=== PATIENT | male | born 1975 ===

== ENCOUNTER 2018-04-05 14:43 | Emergency (ER) | payer OTHER, SELFPAY ==
[2018-04-05 14:47] VITALS: BP 128/91; PULSE 64; RESP 15; TEMP 36.7; O2SAT 97; BMI 30.9
[2018-04-05] MEDS: TET,DIPH,PERTUSS(ACELL),VAC/PF 0.5 ML SYRINGE IM (15:05)
--- NOTE | 2018-04-05 15:41 | ED.WOUNDLAC ---
HPI - Wound/Laceration General Chief Complaint: Wound/Laceration Stated Complaint: CUT FINGER AT FINGER Time Seen by Provider: 04/05/18 15:41 Source: patient Mode of arrival: ambulatory Limitations: no limitations History of Present Illness HPI narrative: Patient states that 3 days ago he cut his finger in a door while at work. Patient states he wrapped the finger up and has kept antibiotic ointment on it since. However he realized he could not remember when his last tetanus shot was, and so has come to the emergency department for this. He denies any further complaints with the wound on his finger. Onset (ago): day(s) Location: other Extremity Location: Left: hand (Index finger) Place: work Patient tetanus UTD: No Context: accidental Associated symptoms: none Treatments prior to arrival: bandage Related Data Home Medications Medication Instructions Recorded Confirmed amlodipine 10 mg PO DAILY 04/05/18 04/05/18 lisinopril 20 mg PO DAILY 04/05/18 04/05/18 trazodone 200 mg PO DAILY 04/05/18 Allergies Allergy/AdvReac Type Severity Reaction Status Date / Time No Known Drug Allergies Allergy Verified 04/05/18 14:47 Review of Systems Review of Systems All systems reviewed & are unremarkable except as noted in HPI and below Constitutional Denies chills, Denies fever(s), Denies lethargy and Denies weakness Eyes Denies change in vision, Denies eye discharge, Denies irritation and Denies loss of vision ENT Ears, Nose, Mouth, and Throat: Denies change in voice, Denies neck pain and Denies sore throat Cardiovascular Denies chest pain, Denies irregular heart rhythm, Denies lightheadedness, Denies palpitations, Denies dyspnea, Denies dyspnea on exertion and Denies orthopnea Respiratory Denies cough, Denies dyspnea, Denies dyspnea on exertion and Denies wheezing Gastrointestinal Gastrointestinal: Denies abdominal pain, Denies change in bowel habits, Denies diarrhea, Denies nausea and Denies vomiting Genitourinary Denies hematuria, Denies flank pain, Denies urinary incontinence and Denies urinary urgency Musculoskeletal Denies neck pain Integumentary/Breasts Denies pruritus, Denies erythema, Denies rash and Denies wounds Neurologic Denies confusion, Denies loss of vision and Denies weakness Psychiatric Denies anxiety, Denies confusion, Denies depression, Denies homicidal ideation and Denies suicidal ideation Endocrine Denies palpitations Hematologic/Lymphatic Denies easy bruising Allergic/Immunologic Denies wheezing PFSH Social History Smoking Status: Never smoker Exam Initial Vital Signs Initial Vital Signs: Vital Signs Temperature 98.1 F 04/05/18 14:47 Pulse Rate 64 04/05/18 14:47 Respiratory Rate 15 04/05/18 14:47 Blood Pressure 128/91 H 04/05/18 14:47 Pulse Oximetry 97 04/05/18 14:47 Const General: cooperative and well developed Nutritional Appearance: well nourished Orientation: alert, awake, oriented x3 and not confused [facility] Head: normocephalic and atraumatic Nose: external nose normal and No nasal discharge Face and sinus: sinuses nontender, face symmetric, no sinus tenderness and No dry mucous membranes Mouth: oral mucosae normal and moist mucous membranes Teeth and gingiva: dentition normal Throat: tonsils normal and uvula midline Eyes General: appearance normal, both eyes and all related structures Eyelids: eyelids normal Conjunctivae: conjunctivae normal EOM: EOM intact bilaterally Neck Neck: normal visual inspection and full ROM Resp Effort & Inspection: normal respiratory effort Cardio Rate: regular rate Rhythm: regular rhythm Pulses: normal peripheral pulses Skin Other: Skin avulsion is noted, left index finger. Neuro General: alert, oriented x3, gait normal and no focal motor deficits Speech: speech normal Extrem Left upper extremity: full ROM and hand (Patient has a 5 mm skin avulsion on the palmar aspect of his left index finger, over the distal phalanx. No evidence of infection.) Details: neuromotor exam abnormal, neurosensory exam normal, tendon exam normal and normal ROM of fingers; no edema and joint enlargement noted Course Hospital Course: Patient's wound looked very good. It was not suturable, although patient's presentation would have been outside of the time window for suture repair even if this was required. Patient's tetanus was updated in the emergency department, and his wound was redressed. No further interventions were indicated in the emergency department, and patient was deemed stable for discharge home. Orders Ordered: Discontinued Medications Diphtheria/Tetanus/Acell Pertussis (Adacel) 0.5 ml IM .ONCE ONE Stop: 04/05/18 15:02 Last Admin: 04/05/18 15:05 Dose: 0.5 ml Vital Signs - 8 hr 04/05/18 14:47 04/05/18 16:14 Temperature 98.1 F 98.0 F Pulse Rate 64 66 Respiratory Rate 15 18 Blood Pressure 128/91 H Blood Pressure [Left Arm] 129/89 H Pulse Oximetry 97 98 MDM - Wound/Laceration Medical Records Attestation: I reviewed the patient's medical records. Discharge Plan Departure Patient Disposition: Home, Self-Care Clinical Impression: Avulsion of skin Discharge Date/Time: 04/05/18 16:19 Interventions: ED Discharge Assessment Last Done: 04/05/18 16:18 Instructions: DI for Avulsion Laceration (Not Requiring Sutures) Prescriptions: No Action lisinopril 20 mg tablet 20 mg PO DAILY RF: 0 trazodone 100 mg tablet 200 mg PO DAILY RF: 0 amlodipine 10 mg tablet 10 mg PO DAILY RF: 0 Referrals: [facility] [Provider Group] (as needed )
[2018-04-05 16:14] VITALS: BP 129/89; PULSE 66; RESP 18; TEMP 36.7; O2SAT 98
== END 2018-04-05 16:19 | disposition home or self-care (01) ==
PROVIDERS: Emergency Provider Emergency Medicine
DX: S61.211A Laceration without foreign body of left index finger without damage to nail, initial encounter (principal); W26.8XXA Contact with other sharp object(s), not elsewhere classified, initial encounter; Y99.0 Civilian activity done for income or pay
CPT/HCPCS: 90471; 99282; 99283; 90715